=== PATIENT | female | born 1950 | race Caucasian/White ===

== ENCOUNTER → 2016-11-02 | Outpatient (CLI) | payer OTHER ==
--- NOTE | 2016-11-02 08:21 | MA ---
Screening Digital Mammogram With iCAD Indication: Routine screening. Technique: Standard cephalocaudal and mediolateral oblique projections are obtained. This examinati on is processed by the iCAD computer-aided detection system. Comparison: October 2015, October 2014, August 2013, and March 2011 Breast density: Type B. Findings: CAD was reviewed. No suspicious microcalcifications, mass, or architectural distortion. Impression: Negative mammogram BI-RADS: 1 - Negative Recommendation: Routine screening is recommended in one year. [facility] will send a result letter to the patient. Negative mammography should not preclude additional workup of a clinically suspicious finding. The patient's information is entered into a reminder system with a target due date for her next mammo gram.
== END ==
LOC: BMCIMAGING 07:36
DX: Z12.31 Encounter for screening mammogram for malignant neoplasm of breast (principal)
CPT/HCPCS: G0202

== ENCOUNTER 2017-09-27 17:17 | Emergency (ER) | payer OTHER ==
--- NOTE | 2017-09-27 17:44 | EDPHY ---
H & P Stated Complaint: pt came in from cold outside and had transient episode of confusion Time Seen by Provider: 09/27/17 17:34 HPI/ROS: CHIEF COMPLAINT: Transient amnesia HISTORY OF PRESENT ILLNESS: The patient presents to the ED with her after an episode of transient amnesia. The patient reportedly was working outside in the cold and return to the house with amnesia surrounding the events earlier in the day. She had no complaints of headache, numbness or weakness. Her amnesia has since resolved. Given the atypical symptoms she presents to the ED for further evaluation. The patient does have a history of hypertension and hyperlipidemia. She has no history of stroke or TIA. She has had a remote history of ocular migraine. REVIEW OF SYSTEMS: A comprehensive 10 point review of systems is otherwise negative aside from elements mentioned in the history of present illness. Source: Patient - Personal History Current Tetanus/Diphtheria Vaccine: Yes - Medical/Surgical History Hx Asthma: Yes Hx Chronic Respiratory Disease: No Hx Diabetes: No Hx Cardiac Disease: No Hx Renal Disease: No Hx Cirrhosis: No Hx Alcoholism: No Hx HIV/AIDS: No Hx Splenectomy or Spleen Trauma: No Other PMH: excema/asthma bilat hip replacement - Social History Smoking Status: Never smoked - Physical Exam Exam: General Appearance: Alert, no distress Eyes: Pupils equal and round no pallor or injection ENT, Mouth: Mucous membranes moist Respiratory: There are no retractions, lungs are clear to auscultation Cardiovascular: Regular rate and rhythm Gastrointestinal: Abdomen is soft and nontender, no masses, bowel sounds normal Neurological: A&O, normal motor function, normal sensory exam, normal cranial nerves, NIH stroke scale equals 0, able to recall 3 items after 5 min Skin: Warm and dry, no rashes Musculoskeletal: Neck is supple nontender Extremities: symmetrical, full range of motion Psychiatric: Patient is oriented X 3, there is no agitation Constitutional: Initial Vital Signs Temperature (C) 36.8 C 09/27/17 17:25 Heart Rate 81 09/27/17 17:25 Respiratory Rate 17 09/27/17 17:25 Blood Pressure 125/67 H 09/27/17 17:25 O2 Sat (%) 98 09/27/17 17:25 O2 Delivery Mode Room Air Allergies/Adverse Reactions: Sulfa (Sulfonamide Antibiotics) Allergy (Verified 09/27/17 17:20) Rash pneumonia vaccine Allergy (Uncoded 09/27/17 17:20) Home Medications: Medication Instructions Recorded Acetoninide Cream PRN 09/27/11 Ascorbic Acid [Vitamin C] 1,000 mg PO 09/27/11 Cloderm PRN 09/27/11 ESOMEPRAZOLE MAG TRIHYDRATE 40 mg PO DAILY 09/27/11 [NEXIUM] Levocetirizine Dihydrochloride 5 mg PO 09/27/11 [Xyzal] Multivitamin [Daily Multiple 1 each PO 09/27/11 Vitamin] Pirbuterol Inhaler [Maxair] 400 puffs IH PRN 09/27/11 Rhinocort PRN 09/27/11 Rosuvastatin Calcium [Crestor] 20 mg PO DAILY 09/27/11 Sertraline HCl [Zoloft] 100 mg PO DAILY 09/27/11 Triamcinolone 0.1% [Triamcinolone 1 loida TOP PRN 09/27/11 Acet] Valacyclovir HCl [Valtrex] 1,000 mg PO PRN 09/27/11 Valsartan/Hydrochlorothiazide 1 each PO 09/27/11 [Diovan Hct 160-25 mg Tablet] Lasix 09/27/17 Nexium 09/27/17 Zoloft 100mg (*) 09/27/17 Medical Decision Making - Diagnostics EKG Interpretation: EKG: Complete interpretation has been separately recorded in the [facility] archive. Summary impression: Sinus rhythm, rate 72 ED Course/Re-evaluation: The patient presents to the ED after an episode of transient global amnesia. She has nothing to suggest stroke or TIA on her current exam. Her vital signs are stable. Her EKG demonstrates no evidence of atrial fibrillation. No bruits appreciated on exam. At this point time the patient has been reassured that transient global amnesia is typically a benign condition. In the absence of any additional neurologic symptoms I do not feel that further workup is indicated. The patient is instructed to return to the ED should she develop any peripheral numbness or weakness. The patient was re-evaluated at 6:40 p.m.. She continues to be neurologically intact without focal deficits appreciated on exam. Differential Diagnosis: Differential diagnosis considered includes transient global amnesia, TIA, stroke , dehydration, migraine variant - Data Points Laboratory Results: Laboratory Results 09/27/17 18:05 09/27/17 18:05 09/27/17 09/27/17 18:05 18:05 WBC 6.10 10^3/uL 10^3/uL (3.80-9.50) RBC 4.21 10^6/uL 10^6/uL (4.18-5.33) Hgb 14.1 g/dL g/dL (12.6-16.3) Hct 40.6 % % (38.0-47.0) MCV 96.4 fL fL (81.5-99.8) MCH 33.5 pg pg (27.9-34.1) MCHC 34.7 g/dL g/dL (32.4-36.7) RDW 12.0 % % (11.5-15.2) Plt Count 310 10^3/uL 10^3/uL (150-400) MPV 9.3 fL fL (8.7-11.7) Neut % (Auto) 57.4 % % (39.3-74.2) Lymph % (Auto) 24.9 % % (15.0-45.0) [place] % (Auto) 10.5 % % (4.5-13.0) Eos % (Auto) 5.6 % % (0.6-7.6) Baso % (Auto) 0.8 % % (0.3-1.7) Nucleat RBC Rel Count 0.0 % % (0.0-0.2) Absolute Neuts (auto) 3.50 10^3/uL 10^3/uL (1.70-6.50) Absolute Lymphs (auto) 1.52 10^3/uL 10^3/uL (1.00-3.00) Absolute Monos (auto) 0.64 10^3/uL 10^3/uL (0.30-0.80) Absolute Eos (auto) 0.34 10^3/uL 10^3/uL (0.03-0.40) Absolute Basos (auto) 0.05 10^3/uL 10^3/uL (0.02-0.10) Absolute Nucleated RBC 0.00 10^3/uL 10^3/uL (0-0.01) Immature Gran % 0.8 % % (0.0-1.1) Immature Gran # 0.05 10^3/uL 10^3/uL (0.00-0.10) Sodium 140 mEq/L mEq/L (134-144) Potassium 4.2 mEq/L mEq/L (3.5-5.2) Chloride 102 mEq/L mEq/L (97-110) Carbon Dioxide 25 mEq/l mEq/l (22-31) Anion Gap 13 mEq/L mEq/L (8-16) BUN 24 mg/dL H mg/dL (7-23) Creatinine 0.8 mg/dL mg/dL (0.6-1.0) Estimated GFR > 60 Glucose 96 mg/dL mg/dL (70-100) Calcium 9.7 mg/dL mg/dL (8.5-10.4) Departure - Departure Disposition: Home, Routine, Self-Care Clinical Impression: Transient global amnesia Condition: Good Instructions: Transient Global Amnesia (ED) Additional Instructions: 1. Return to the ED for any severe headache, numbness, weakness, difficulty with speech or other concerns. 2. Today you experienced transient global amnesia which is a benign self- limited condition. Helpful information on this condition is available at the [facility] patient web site. 3. Please follow up with your primary care provider as scheduled. Referrals: Arlene Barcenas MD [Primary Care Provider] - As per Instructions
--- NOTE | 2017-09-27 18:01 | CPEKG ---
Heart Rate: 72 RR Interval: 833 P-R Interval: 164 QRSD Interval: 80 QT Interval: 416 QTC Interval: 456 P [place]: 68 QRS [place]: 35 T Wave [place]: 36 EKG Severity - NORMAL ECG - EKG Impression: SINUS RHYTHM Electronically Signed By: Moose Ocampo 27-Sep-2017 18:06:33
[2017-09-27 18:21] LABS: PLATELET COUNT 310 10^3/uL (150-400)
[2017-09-27 18:57] VITALS: BP 154/98; PULSE 75; RESP 15; TEMP 98.1; O2SAT 95
== END 2017-09-27 18:57 | disposition home or self-care (01) ==
DX: G45.4 Transient global amnesia (principal); I10 Essential (primary) hypertension; J45.909 Unspecified asthma, uncomplicated

== ENCOUNTER → 2017-11-19 | Outpatient (CLI) | payer OTHER | LOC: BMCIMAGING 08:11 | PROVIDERS: ATTEND Internal Medicine | DX: Z12.31 Encounter for screening mammogram for malignant neoplasm of breast (principal) ==

== ENCOUNTER → 2017-11-29 | Outpatient (CLI) | payer OTHER | LOC: BMCIMAGING 10:36 | PROVIDERS: ATTEND Internal Medicine | DX: R92.2 Inconclusive mammogram (principal) ==

== ENCOUNTER → 2018-11-21 | Outpatient (CLI) | payer OTHER | LOC: BMCIMAGING 08:23 | PROVIDERS: ATTEND Internal Medicine | DX: Z12.31 Encounter for screening mammogram for malignant neoplasm of breast (principal) ==